=== PATIENT | male | born 1975 | race Caucasian/White ===

== ENCOUNTER 2024-05-24 20:02 | Emergency (ER) | payer SELFPAY ==
[~2024-05-24] VITALS: Ht 167.6 cm; Wt 80.0 kg
[2024-05-24 20:15] VITALS: TEMP 36.6; O2SAT 98
[2024-05-24] MEDS: PANTOPRAZOLE SODIUM 40 MG/VIAL IV STA (21:01)
[2024-05-24] MEDS: MAGNESIUM/ALUMINUM HYDROXIDE/SIMETHICONE 30ML UDC PO STA (21:18)
[2024-05-24] MEDS: PANTOPRAZOLE 40MG DR TABLET PO ONE (21:18)
[2024-05-24] MEDS: ONDANSETRON 4MG ODT PO STA (21:18)
[2024-05-24] MEDS: LORAZEPAM 1MG TABLET PO ONE (21:48)
[2024-05-24 22:22] LABS: BASOPHILS % 0.6 % (0.0-2.0); HEMATOCRIT. 40.6 % (42.0-52.0); HEMOGLOBIN. 13.6 g/dL (14.0-18.0); LYMPHOCYTES % 35.6 % (20.0-50.0); MEAN CORPUSCULAR HEMOGLOBIN 29.4 pg (28.0-32.0); MEAN CORPUSCULAR HGB CONC 33.6 g/dL (31.0-37.0); MEAN CORPUSCULAR VOLUME 87.4 fL (80.0-94.0); MEAN PLATELET VOLUME 7.1 fl (7.4-10.4); MONOCYTES % 4.9 % (2.0-8.0); NEUTROPHILS % 58.9 % (40.0-76.0); PLATELET 329 x1000/uL (130-400); RED BLOOD CELL COUNT 4.64 mill/uL (4.7-6.1); WHITE BLOOD COUNT 3.4 x1000/uL (4.5-11.0)
[2024-05-24 22:32] LABS: INR 0.9; PROTHROMBIN TIME 10.3 sec (9.6-11.0)
[2024-05-24 22:36] LABS: CARBON DIOXIDE 23 mEq/L (21-32); CHLORIDE 101 mEq/L (98-107); SODIUM 144 mEq/L (136-145)
[2024-05-24 22:37] LABS: CALCIUM 8.9 mg/dL (8.7-10.4)
[2024-05-24 22:41] LABS: CREATININE 1.2 mg/dL (0.6-1.3)
[2024-05-24 22:42] LABS: GLUCOSE 92 mg/dL (70-105); UREA NITROGEN BLOOD 11 mg/dL (9-23)
[2024-05-24 22:43] LABS: ALANINE AMINOTRANSFERASE 86 IU/L (10-49); ASPARTATE AMINOTRANSFERASE 118 IU/L (<34)
[2024-05-24 22:44] LABS: BILIRUBIN DIRECT 0.1 mg/dL (<=3.0); BILIRUBIN TOTAL 0.4 mg/dL (0.1-1.0); PROTEIN TOTAL 8.4 g/dL (6.0-8.3)
[2024-05-24 23:13] LABS: POTASSIUM 2.8 mEq/L (3.5-5.1)
[2024-05-25] MEDS: POTASSIUM CHLORIDE 20MEQ/PACKET PO ONE
[2024-05-25] MEDS: PANTOPRAZOLE SODIUM 40 MG/VIAL IV NR (02:41)
[2024-05-25] MEDS: POTASSIUM CHLORIDE 20MEQ/PACKET PO NR (03:44)
[2024-05-25 04:00] VITALS: BP 112/49; PULSE 88; RESP 16; O2SAT 98
== END 2024-05-25 04:00 | disposition home or self-care (01) ==
LOC: ER 20:02
DX: K29.20 Alcoholic gastritis without bleeding (principal); F10.10 Alcohol abuse, uncomplicated; Y90.9 Presence of alcohol in blood, level not specified; Z88.0 Allergy status to penicillin
CPT/HCPCS: 99284; 80076; 80048; 83690; 85025; 85610; 36415; Q0162